=== PATIENT | female | born 1995 | race African-American/Black ===

== ENCOUNTER 2016-08-31 09:56 | Emergency (ER) | payer OTHER ==
[~2016-08-31] VITALS: Ht 175.3 cm; Wt 100.0 kg
[2016-08-31 09:58] VITALS: BP 139/95; PULSE 82; RESP 20; TEMP 98; O2SAT 97
--- NOTE | 2016-08-31 11:34 | PD ---
HPI Chief Complaint: Facial Pain or Swelling Time Seen by Provider: 11:34 Travel History International Travel<30 days: No Contact w/Intl Traveler<30days: No Traveled to known affect area: No History of Present Illness HPI 21-year-old female presents to the ED for evaluation of 3 day history of sore throat. Patient states that she woke this morning feeling as if there is something in her throat. She endorses hoarse voice, difficulty swallowing her own secretions, subjective fevers, tender "lumps" in her neck.. She endorses mild, clear rhinorrhea. She denies ear pain, abdominal pain, nausea, vomiting. She did not receive this years flu vaccination. She denies sick contacts. She denies risk of . She denies chronic health problems, takes no daily medications. NKDA. PFSH Past Medical History ?: Not LMP: JUL 2016 Social History Tobacco Use: No Allergies-Medications (Allergen,Severity, Reaction): Coded Allergies: No Known Allergies (Unverified , 08/31/16) Reported Meds & Prescriptions Reported Meds & Active Scripts Active Prednisone 20 Mg Tab 40 Mg PO DAILY 5 Days Take 40 mg (2 tablets) daily for 5 days Magic Mouthwash Adult Liq (Multi-Ingredient Mouthwash/Gargle) 120 Ml Susp 5 Ml SWISH-SWAL ACHS 10 Days Each 5mL contains: Nystatin 200,000units, Diphenhydramine 4.25mg, Viscous Lidocaine 10mg, Harris syrup 0.8 mL Amoxicillin Liq (Amoxicillin) 400 Mg/5 Ml Susp 500 Mg PO BID 10 Days Review of Systems Except as stated in HPI: all other systems reviewed are Neg Physical Exam Narrative GENERAL: Well-nourished, well-developed black female in no acute distress. Hoarse voice. SKIN: Warm and dry. HEAD: Normocephalic. Atraumatic. EYES: No scleral icterus. No injection or drainage. PERRLA. EOMI. ENT: Pearly medrano tympanic membranes bilaterally. Nasal mucosa is moist. Oropharynx erythematous, edematous. No visible exudates. Mallampati 3/4. The tonsils are abutting in the midline. The uvula is bright red, compressed between the tonsils. NECK: Tenderness below the mandible bilaterally., trachea midline. No JVD. Tender bilateral anterior cervical lymphadenopathy. CARDIOVASCULAR: Regular rate and rhythm without murmurs, gallops, or rubs. RESPIRATORY: Breath sounds clear and equal bilaterally. No wheezing. No stridor. No accessory muscle use. GASTROINTESTINAL: Abdomen soft, non-tender, nondistended. + Bowel sounds MUSCULOSKELETAL: No cyanosis, or edema. The patient is ambulatory and moves the extremities spontaneously. BACK: Nontender without obvious deformity. No CVA tenderness. Data Data Last Documented VS Vital Signs Date Time Temp Pulse Resp B/P Pulse Ox O2 Delivery O2 Flow Rate FiO2 08/31/16 13:39 80 18 138/84 98 Room Air 08/31/16 09:58 98.0 Orders Basic Metabolic Panel (Bmp) (08/31/16 11:46) Complete Blood Count With Diff (08/31/16 11:46) Blood Culture (08/31/16 11:46) Soft Tissue Neck (08/31/16 11:46) Ct Soft Tiss Neck W Iv Cont (08/31/16 11:46) Iv Access Insert/Monitor (08/31/16 11:46) Dexamethasone Inj (Decadron Inj) (08/31/16 12:00) Sodium Chloride 0.9% Flush (Ns Flush) (08/31/16 12:00) Influenzae A/B Antigen (08/31/16 12:03) Ed Urine Pregnancytest Poc (08/31/16 12:26) Group A Rapid Strep Screen (08/31/16 12:51) Strep Culture (Group A) (08/31/16 12:53) Iohexol 350 Inj (Omnipaque 350 Inj) (08/31/16 13:55) Amoxicillin 400 Mg/5ml Liq (Trimox 400 M (08/31/16 16:00) Labs Laboratory Tests Test 08/31/16 12:30 White Blood Count 5.4 TH/MM3 Red Blood Count 4.48 MIL/MM3 Hemoglobin 10.4 GM/DL Hematocrit 33.4 % Mean Corpuscular Volume 74.6 FL Mean Corpuscular Hemoglobin 23.2 PG Mean Corpuscular Hemoglobin 31.1 % Concent Red Cell Distribution Width 15.8 % Platelet Count 310 TH/MM3 Mean Platelet Volume 7.6 FL Neutrophils (%) (Auto) 62.5 % Lymphocytes (%) (Auto) 29.6 % Monocytes (%) (Auto) 6.6 % Eosinophils (%) (Auto) 1.2 % Basophils (%) (Auto) 0.1 % Neutrophils # (Auto) 3.3 TH/MM3 Lymphocytes # (Auto) 1.6 TH/MM3 Monocytes # (Auto) 0.4 TH/MM3 Eosinophils # (Auto) 0.1 TH/MM3 Basophils # (Auto) 0.0 TH/MM3 CBC Comment AUTO DIFF Differential Comment AUTO DIFF CONFIRMED Platelet Estimate NORMAL Platelet Morphology Comment NORMAL Sodium Level 137 MEQ/L Potassium Level 4.0 MEQ/L Chloride Level 102 MEQ/L Carbon Dioxide Level 29.4 MEQ/L Anion Gap 6 MEQ/L Blood Urea Nitrogen 10 MG/DL Creatinine 0.77 MG/DL Estimat Glomerular Filtration 93 ML/MIN Rate Random Glucose 82 MG/DL Calcium Level 9.0 MG/DL [facility] Medical Decision Making Medical Screen Exam Complete: Yes Emergency Medical Condition: Yes Differential Diagnosis Pharyngitis versus strep pharyngitis versus peritonsillar abscess versus epiglottitis versus uvulitis versus deep neck space infection versus other Narrative Course 21-year-old female presents to the ED for evaluation of 3 day history of sore throat. Worsened today, states she feels as if something is in her throat. She endorses hoarse voice, difficulty swallowing her own secretions, subjective fevers, tender "lumps" in her neck, clear rhinorrhea. She denies ear pain, abdominal pain, nausea, vomiting. She did not receive this years flu vaccination. Vitals reviewed. Physical exam reveals a nontoxic-appearing black female with a very hoarse voice. Pearly medrano tympanic membranes bilaterally, nasal mucosa moist. Oropharynx erythematous, edematous. No visible exudates. Mallampati 3/4. Tonsils abut in the middle, compressing the bright red uvula. Patient is tender to palpation below the mandible bilaterally. There is tender bilateral anterior cervical lymphadenopathy. The chest is clear to auscultation bilaterally. No increased work of breathing, wheeze, stridor. Remaining physical exam is unremarkable. IV was established. Patient was administered IV dexamethasone. CBC: WBC 5.4. Hgb 10.4. BMP: Unremarkable Rapid strep: Negative Influenza swab: Negative X-ray: Negative per radiology read. CT soft tissue neck: Prominent adenoids and tonsils without identifiable mass per radiology read Urine test: Negative Blood cultures: Pending I discussed the patient, workup with Dr. Buchanan. He evaluated the patient. We agreed to discharge the patient with amoxicillin, Magic mouthwash, prednisone. We discussed the serious risk of airway compromise, the importance of returning to the ED should the patient's symptoms worsen. She is instructed to return in 2 days for reevaluation, sooner if needed. I stressed the importance of compliance with the antibiotics and steroids. The patient indicated understanding of the instructions. She is amenable to plan of care. She is stable and discharged home. Diagnosis Primary Impression: Pharyngitis Qualified Code: J02.9 - Pharyngitis, unspecified etiology Additional Impression: Enlargement of tonsils and adenoids Referrals: Ear / Nose / Throat Specialist Patient Instructions: General Instructions, Pharyngitis (ED) Additional Instructions: Rest, hydrate. Take antibiotics as prescribed. Take steroids as prescribed. Use Magic mouthwash 3-4 times per day as needed. Return to the ED for recheck in 2 days, sooner if symptoms worsen or you have difficulties breathing. Med/Other Pt SpecificInfo: Prescription(s) given Scripts Prednisone 20 Mg Tab40 Mg PO DAILY 5 Days Ref 0 Take 40 mg (2 tablets) daily for 5 days Prov:Gadiel Riggs MD 08/31/16 Trpyvooi-Qgydsatjkyonmnz-Rlivznjmq Liq (Magic Mouthwash Adult Liq)120 Ml Susp5 Ml SWISH-SWAL ACHS 10 Days Ref 0 Each 5mL contains: Nystatin 200,000units, Diphenhydramine 4.25mg, Viscous Lidocaine 10mg, Harris syrup 0.8 mL Prov:Gadiel Riggs MD 08/31/16 Amoxicillin Liq 400 Mg/5 Ml [id number] Mg PO BID 10 Days Ref 0 Prov:Gadiel Riggs MD 08/31/16 Disposition: 01 DISCHARGE HOME Condition: Stable Deb Guerra Aug 31, 2016 11:34
[2016-08-31] MEDS ORDERED: SODIUM CHLORIDE 0.9% FLUSH 5 ML FLUSH IVF PRN (12:00)
[2016-08-31] MEDS ORDERED: DEXAMETHASONE SOD PHOS 4 MG/ML VIAL IV ONE (12:00)
[2016-08-31 12:57] LABS: AUTOMATED NEUTROPHIL # 3.3 TH/MM3 (1.8-7.7); BASOPHIL % 0.1 % (0.0-2.0); EOSINOPHIL # 0.1 TH/MM3 (0-0.4); EOSINOPHIL % 1.2 % (0.0-4.0); HEMATOCRIT 33.4 % (35.0-46.0); HEMO FLAGS AUTO DIFF; LYMPH % 29.6 % (9.0-44.0); LYMPHOCYTE # 1.6 TH/MM3 (1.0-4.8); MEAN CELL VOLUME 74.6 FL (80.0-100.0); MEAN CORPUSCULAR HEMOGLOBIN 23.2 PG (27.0-34.0); MEAN CORPUSCULAR HGB CONC 31.1 % (32.0-36.0); MONO % 6.6 % (0.0-8.0); NEUT % 62.5 % (16.0-70.0); PLATELET COUNT 310 TH/MM3 (150-450); RED BLOOD COUNT 4.48 MIL/MM3 (4.00-5.30); RED CELL DISTRIBUTION WIDTH 15.8 % (11.6-17.2); WHITE BLOOD COUNT 5.4 TH/MM3 (4.0-11.0)
[2016-08-31 13:19] LABS: BICARBONATE 29.4 MEQ/L (21.0-32.0)
--- NOTE | 2016-08-31 13:26 | RADRPT ---
EXAM DATE/TIME: 08/31/2016 13:11 [facility] COMPARISON: No previous studies available for comparison. INDICATIONS : Pain and discomfort in throat with swelling and hemoptysis. MEDICAL HISTORY : None. SURGICAL HISTORY : None. ENCOUNTER: Initial ACUITY: 1 day PAIN SCORE: 7/10 LOCATION: neck FINDINGS: Two view examination of the soft tissues of the neck demonstrates the hypopharyngeal airway to have a grossly normal configuration. The trachea is midline. No radiopaque foreign bodies are seen. CONCLUSION: Negative Noman Villalobos MD FACR on August 31, 2016 at 13:24 Board Certified Radiologist. This report was verified electronically.
[2016-08-31 13:34] LABS: PLATELET ESTIMATE SMEAR NORMAL (NORMAL); PLATELET MORPHOLOGY NORMAL (NORMAL); SCAN/DIFF AUTO DIFF CONFIRMED
[2016-08-31 13:39] VITALS: BP 138/84; PULSE 80; RESP 18; O2SAT 98
[2016-08-31] MEDS ORDERED: IOHEXOL 350 MG/ML 10 ML VIAL (for RAD DIAG) IV ONE (13:55)
--- NOTE | 2016-08-31 14:42 | RADRPT ---
EXAM DATE/TIME: 08/31/2016 13:46 [facility] COMPARISON: No previous studies available for comparison. INDICATIONS: Sore throat with hoarse voice for 3 days. IV CONTRAST: 98 cc Omnipaque 350 (iohexol) IV RADIATION DOSE: 28.00 CTDIvol (mGy) MEDICAL HISTORY: None SURGICAL HISTORY: None. ENCOUNTER: Initial ACUITY: 3 days PAIN SCALE: 5/10 LOCATION: Neck TECHNIQUE: Volumetric scanning of the neck was performed. Using automated exposure control and adjustment of th e mA and/or kV according to patient size, radiation dose was kept as low as reasonably achievable to obtain optimal diagnostic quality images. FINDINGS: There are prominent tonsils and adenoids present. There is very minimal nonspecific adenopathy. Foc al mass is not identified. Lung apex is clear. CONCLUSION: Prominent adenoids and tonsils without identifiable abscess. Noman Villalobos MD FACR on August 31, 2016 at 14:07 Board Certified Radiologist. This report was verified electronically.
[2016-08-31] MEDS ORDERED: PRED20 PO (15:54)
[2016-08-31] MEDS ORDERED: MAGICADU2 SWISH-SWAL (15:54)
[2016-08-31] MEDS ORDERED: AMOX400S3 PO (15:54)
[2016-08-31] MEDS ORDERED: AMOXICILLIN 400 MG/5ML LIQ 100 ML BTL PO ONE (16:00)
== END 2016-08-31 16:52 | disposition home or self-care (01) ==
LOC: NETRI 09:56
DX: J02.9 Acute pharyngitis, unspecified (principal); J35.3 Hypertrophy of tonsils with hypertrophy of adenoids
CPT/HCPCS: 70360; 70491; 80048; 84703; 85025; 87040; 87081; 87804; 87880; 96374; 99284; J1100; Q9967

== ENCOUNTER 2016-09-03 09:34 | Emergency (ER) | payer OTHER ==
[~2016-09-03] VITALS: Ht 175.3 cm; Wt 81.0 kg
[~2016-09-03 09:34] MED LIST: AMOX400S3 PO; MAGICADU2 SWISH-SWAL; PRED20 PO
[2016-09-03 09:35] VITALS: BP 136/86; PULSE 62; RESP 16; TEMP 97.6; O2SAT 98
--- NOTE | 2016-09-03 10:32 | PD ---
HPI Chief Complaint: Medical Clearance Time Seen by Provider: 09:58 Travel History International Travel<30 days: No Contact w/Intl Traveler<30days: No Traveled to known affect area: No History of Present Illness HPI 21-year-old female presents to the emergency department for reevaluation of her sore throat. She was seen here 3 days ago and was given antibiotics and steroids which she has been taking as prescribed. She reports improvement in her sore throat. Denies lump in throat, difficulty swallowing, unusual drooling. She is able to swallow her own saliva. She denies airway edema, difficulty breathing, shortness of breath. Denies stridor or wheezing. Denies fever, chills, nausea, vomiting. Has no emergent medical complaints today. Here just to be reevaluated, as she was told to come back for reevaluation. No known allergies. No other modifying factors or associated signs and symptoms. History Social History Alcohol Use: No Tobacco Use: No Allergies-Medications (Allergen,Severity, Reaction): Coded Allergies: No Known Allergies (Unverified , 09/03/16) Reported Meds & Prescriptions Reported Meds & Active Scripts Active Prednisone 20 Mg Tab 40 Mg PO DAILY 5 Days Take 40 mg (2 tablets) daily for 5 days Magic Mouthwash Adult Liq (Multi-Ingredient Mouthwash/Gargle) 120 Ml Susp 5 Ml SWISH-SWAL ACHS 10 Days Each 5mL contains: Nystatin 200,000units, Diphenhydramine 4.25mg, Viscous Lidocaine 10mg, Harris syrup 0.8 mL Amoxicillin Liq (Amoxicillin) 400 Mg/5 Ml Susp 500 Mg PO BID 10 Days Review of Systems Except as stated in HPI: all other systems reviewed are Neg Physical Exam Narrative GENERAL: Well-nourished, well-developed patient, in no acute distress; afebrile , nontoxic-appearing SKIN: Warm and dry. No rash. HEAD: Atraumatic. Normocephalic. EYES: Pupils equal and round . No scleral icterus. No injection or drainage. ENT: Mucosa pink and dry. Pharynx with 1-2+ tonsils; with erythema and mild edema; without exudate. No Uvular edema. No uvular, palatal, or tonsillar deviation. Airway patent. Voice is hoarse. NECK: Trachea midline. No Anterior cervical lymphadenopathy and tenderness. CARDIOVASCULAR: Regular rate. RESPIRATORY: No accessory muscle use. GASTROINTESTINAL: Rounded. MUSCULOSKELETAL: No obvious deformities. No clubbing. No cyanosis. No edema. NEUROLOGICAL: Awake and alert. Oriented 3. No obvious cranial nerve deficits. Motor grossly within normal limits. Normal speech. Moves all extremities. PSYCHIATRIC: Appropriate mood and affect; insight and judgment normal. Data Data Last Documented VS Vital Signs Date Time Temp Pulse Resp B/P Pulse Ox O2 Delivery O2 Flow Rate FiO2 09/03/16 09:35 97.6 62 16 136/86 98 MDM Medical Screen Exam Complete: Yes Emergency Medical Condition: No Differential Diagnosis Medical clearance, pharyngitis, enlargement of tonsils and adenoids Narrative Course 21-year-old female presents for reevaluation of pharyngitis after being seen on July 31. On August [address] of the neck and x-ray of the neck which were both negative for abscess. She is currently taking amoxicillin and prednisone as prescribed and reports improvement in symptoms. Denies lump in throat, focal to swallowing, unusual drooling. Reports being able to swallow fluids and food without difficulty. Afebrile. Nontoxic appearing. Oropharynx is with mild erythema and edema and without exudate. Instructed patient to continue medications as prescribed and she verbalized understanding and agreement. Vital signs are stable and the patient is stable for outpatient follow-up and treatment. The patient has no urgent or emergent medical complaints. There is no emergent or urgent medical need at this time. I instructed the patient to follow up with their primary care provider. A medical screening exam was performed: At the time of evaluation the presenting medical condition was determined not to be of an emergent nature. The patient was given the option of receiving additional care, but declined. Patient was given options for additional community resources from which to obtain care. The Patient Has Been advised to seek medical attention for their presenting complaint. The patient has been advised to return to the ER at any time if an emergent condition develops. Primary Impression: Encounter for medical screening examination Condition: Stable Alesia García Sep 03, 2016 09:58
== END 2016-09-03 10:12 | disposition left against medical advice (07) ==
LOC: NEPB 09:34
DX: J02.9 Acute pharyngitis, unspecified (principal)
CPT/HCPCS: 99281